=== PATIENT | female | born 1960 | race Caucasian/White ===

== ENCOUNTER 2022-04-01 01:06 | Inpatient (IN) | payer MEDICAID, SELFPAY ==
[2022-04-01] VITALS (9 sets, daily range): BP systolic 124–152; BP diastolic 63–74; PULSE 68–88; RESP 12–99; TEMP 36–37.1; O2SAT 97–100; BMI 31.5
--- NOTE | ~2022-04-01 | XR_ITS ---
EXAMINATION: XR CHEST CLINICAL INFORMATION: Change in mental status. Rule out pneumonia. COMPARISON: 01/17/2006 TECHNIQUE: Frontal view of the chest was obtained. FINDINGS: Lung volumes are low. No consolidation, edema, or effusion. No pneumothorax. Linear right perihilar opacity favors atelectasis. The cardiomediastinal silhouette is normal in size. No acute osseous abnormality. XR/XR chest 1V IMPRESSION: Low lung volumes with right perihilar atelectasis. No consolidation.
--- NOTE | ~2022-04-01 | US_ITS ---
EXAMINATION: US ABDOMEN COMPLETE CLINICAL INFORMATION: Cirrhosis. COMPARISON: None TECHNIQUE: Real-time imaging of the abdominal viscera. Examination performed bedside with limitation in views. FINDINGS: PANCREAS: Portions of the body are visualized. Head and tail obscured by overlying bowel gas. ABDOMINAL AORTA: The proximal and mid segments are unremarkable. The distal abdominal aorta is not identified. INFERIOR VENA CAVA: Visualized portions are normal. LIVER: There is coarsened echotexture present consistent with diffuse hepatocellular disease. The liver appears small in size. There appears to be a TIPS present with hepatopedal flow but increased velocity over 100 cm/s is persistence with some degree of stenosis. No focal hepatic lesion. There is no intrahepatic biliary duct dilatation seen. GALLBLADDER: Not visualized COMMON BILE DUCT: Normal in caliber measuring 0.6 cm in diameter. RIGHT KIDNEY: Normal. No hydronephrosis. No renal calculi or focal parenchymal lesions. The kidney measures 10.5 cm in maximum dimension. LEFT KIDNEY: Normal. No hydronephrosis. No renal calculi or focal parenchymal lesions. The kidney measures 9.8 cm in maximum dimension. SPLEEN: Normal. The spleen measures 10.2 cm in maximum dimension. FREE FLUID: Ascites present. US/US abdomen complete IMPRESSION: Hepatocellular disease. TIPS in place with hepatopedal flow present. Findings suggestive of TIPS stenosis. Ascites.
--- NOTE | 2022-04-01 01:26 | PC.NURSE ---
pt is unable to answer any questions at this time. Pt friend [phone] was able to assist us with some medical background for pt. Unable to get of hold of at this time.
--- NOTE | 2022-04-01 01:34 | ECG_ITS ---
Test Reason : ALTERED MENTAL Blood Pressure : / mmHG Vent. Rate : 079 BPM Atrial Rate : 079 BPM P-R Int : 170 ms QRS Dur : 078 ms QT Int : 432 ms P-R-T Axes : 036 -04 023 degrees QTc Int : 495 ms Normal sinus rhythm Cannot rule out Anterior infarct , age undetermined Abnormal ECG No previous ECGs available Referred By: Jose Luis Abernathy Electronically Signed By:JOSEPH SANDERS MD
--- NOTE | 2022-04-01 01:34 | PC.NURSE ---
Pt comes to Ed via ambulance. Pt unable to state name or where she is. Pt mentation noted to be altered. Pt is able to follow command but doesn't answer questions appropiately.
--- NOTE | 2022-04-01 01:35 | PC.NURSE ---
Attempted to call spouse, phone listed is a fax number, Called [place] police to do a wellness check and to attempt to get phone. Will notify VANDANA blancas.
[2022-04-01 01:54] LABS: Hematocrit 34.9 % (37.0-47.0); Imm Gran Abs Auto 0.01 X10*3/uL (0.00-0.03); PLT CLUMP 1; Red Cell Distribution Width 17.8 % (11.0-16.0); SCAN SMEAR FLAG 1
[2022-04-01 01:55] LABS: Basophils Percent Auto 0.7 % (0-2); Eosinophils Percent Auto 0.7 % (0-4); Hemoglobin 11.2 g/dl (12.0-16.0); Imm Gran Pct Auto 0.2 % (0.0-0.4); Lymphocytes Absolute Auto 0.3 X10*3/uL (1.2-4.9); Lymphocytes Percent Auto 6.6 % (20-40); Mean Corpuscular HGB Conc 32.1 g/dl (31.0-35.0); Mean Corpuscular Hemoglobin 26.8 pg (27.0-33.0); Mean Corpuscular Volume 83.5 fL (80.0-98.0); Mean Platelet Volume 9.2 fL (9.4-12.3); Monocytes Absolute Auto 0.3 X10*3/uL (0.1-1.2); Monocytes Percent Auto 7.1 % (2-11); Neutrophils Absolute Auto 3.4 x10*3/uL (2.0-8.3); Neutrophils Percent Auto 84.7 % (45-73); Red Blood Count 4.18 X10*6/uL (4.20-5.50)
[2022-04-01 01:57] LABS: MANUAL DIFF FLAG NO; White Blood Count 4.1 X10*3/uL (4.8-10.8)
[2022-04-01 01:59] LABS: INTERNATIONAL NORM RATIO 1.3 (0.9-1.1); Prothrombin Time 15.2 SEC (10.0-13.1)
[2022-04-01 02:02] LABS: Partial Thromboplastin Time 33.6 SEC (26.0-36.4)
[2022-04-01 02:02] LABS: Ammonia 244 umol/L (13-55)
[2022-04-01 02:10] LABS: Ethanol < 10 mg/dL
[2022-04-01] MEDS: 0.9 % Sodium Chloride 1,000 ML 999 ML IV (02:11)
[2022-04-01 02:15] LABS: Troponin-I High Sensitivity < 3.5 ng/L (<3.5-17.0)
[2022-04-01 02:17] LABS: Alanine Aminotransferase 31 U/L (0-31); Albumin Level 2.8 g/dL (3.5-5.0); Alkaline Phosphatase 132 U/L (39-117); Anion Gap 13 (12-20); Aspartate Amino Transferase 72 U/L (5-31); Bilirubin Total 1.3 mg/dL (0.0-1.0); Blood Urea Nitrogen 10 mg/dL (9-16); Calcium 8.2 mg/dL (8.4-10.2); Carbon Dioxide 23 mmol/L (22-29); Chloride 112 mmol/L (96-108); Creatinine Clr Calc Pharmacy 84.1; Estimated Glomerular Filt Rate > 60; Glucose Random 200 mg/dL (60-115); Lipase 54 U/L (8-78); Potassium 3.6 mmol/L (3.3-5.1); Sodium 144 mmol/L (135-145); Total Protein 6.5 g/dL (6.5-8.0)
[2022-04-01 02:30] LABS: Platelet Count 96 X10*3/uL (160-400)
[2022-04-01 02:33] LABS: TSH reflex Free T4 2.07 uIU/mL (0.32-4.0)
[2022-04-01 02:37] LABS: Influenza A PCR NEGATIVE (Negative); Influenza B PCR NEGATIVE (Negative); Resp Syncy Virus RNA Qual PCR NEGATIVE (Negative); SARS COV2 PCR INHOUSE NEGATIVE (Negative)
[2022-04-01 03:50] LABS: Reflex Lactate? Lactic Acid Added
--- NOTE | 2022-04-01 04:16 | PC.NURSE ---
Pt somnolent responsive to name. Pt doesn't respond verbally Ed provider aware. Plan pt to receive rectal lactulose.
--- NOTE | 2022-04-01 04:35 | ED_ITS ---
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 The ED charge nurse did contact [place] and spoke to a co-worker who was a friend of the patient. The patient apparently has liver disease and is supposed to be taking lactulose but stop this medication since it was causing diarrhea and the patient needed to work. The friend also reported that the patient may have had some type of liver surgery and that the cause of the patient's liver failure was secondary to a COVID-19 booster shot. We attempted to call the next of kin number and this was a fax machine. The [place] police were contacted and they went to the patient's home and there was no response when the police knocked on the door. Related Data Allergies Allergy/AdvReac Type Severity Reaction Status Date / Time Unable to Assess Allergy Unverified 04/01/22 01:25 Review of Systems Review of Systems: Yes Unobtainable due to mental status PMFSH Social History Social History Advance Directives: No Physical Exam ED Vital Signs: Vital Signs - 24 hr 04/01/22 01:29 04/01/22 02:22 04/01/22 04:14 Temperature 98.7 F 98.7 F Pulse Rate 80 72 70 Respiratory Rate 12 99 H Blood Pressure 137/69 137/67 135/67 Pulse Oximetry 100 98 98 Oxygen Delivery Method Room Air Room Air Room Air 04/01/22 04:44 04/01/22 05:24 Temperature 97.5 F Pulse Rate 68 68 Respiratory Rate 16 16 Blood Pressure 132/63 124/64 Pulse Oximetry 97 97 Oxygen Delivery Method Room Air Room Air BMI result Body Mass Index 31.5 Vital signs were normal. General: The patient is lethargic but she was able to tell me her name only, she was not able to answer questions HEENT: Head is normal cephalic and atraumatic, pupils were equal round reactive light sclera and conjunctiva were normal, mouth revealed moist membranes Neck: Soft Lungs: Clear to auscultation breath sounds symmetric bilaterally Heart: Rhythm normal S1-S2 no murmurs rubs or gallops Abdomen: Obese, soft, nontender Extremities: unremarkable Neurologic: Patient is lethargic, was only able to tell me her name, does not follow commands Medications Administered Discontinued Medications Generic Name Dose Route Start Last Admin Trade Name Abdifatah PRN Reason Stop Dose Admin Sodium Chloride 1,000 mls @ 999 mls/hr 04/01/22 01:33 04/01/22 03:17 Ns IV 04/01/22 02:33 Infused .Q1H1M STA Infusion Lactulose 200 gm 04/01/22 04:31 04/01/22 05:11 Lactulose 320 Gm/480 Ml Solution AK 04/01/22 04:32 200 gm ONCE ONE Administration Medical Decision Making Medical Decision Making MDM Narrative: 61-year-old female who presents emergency department for evaluation of change in mental status. The patient apparently has liver failure but I have no records on her. Patient is supposed to be taking lactulose but stop this medication secondary to diarrhea and the fact that she needed to work and could not work with diarrhea. On presentation the patient is lethargic, she is oriented to person only, she was not able to follow simple commands. I ordered a CBC, CMP, ammonia level, troponin level, lactic acid, alcohol level, COVID-19, influenza and RSV. Patient was ordered normal saline IV x1 L. 0500: My interpretation patient's laboratory tests are as follows WBC low 4100, H&H low 11.2 and 34.9. Platelet count is low 96,000, these low values are most likely related to her liver disease. Total bilirubin elevated 1.3. AST elevated 72. Lactic acid is elevated 3.0 this is again related to her liver disease and not due to sepsis. Ammonia level is elevated 244. TSH was normal. COVID-19, influenza and RSV were negative. I ordered a 200 mg lactulose retention enema to treat the patient's hepatic encephalopathy. I did discuss the patient's presentation with the covering hospitalist, Dr. Cortes over tiger text and the patient was accepted to the ospitalist service for further treatment. Differential Diagnosis The differential includes was not limited to hepatic encephalopathy, electrolyte abnormality, alcohol intoxication, drug use Lab Data [facility] Lab Attestation statement: I reviewed the patient's lab results. Please see MDM from my discussion. 04/01/22 01:45 04/01/22 01:47 Labs: Lab Results 04/01/22 04/01/22 04/01/22 Range/Units 01:45 01:45 01:46 WBC 4.1 L (4.8-10.8) X10*3/uL RBC 4.18 L (4.20-5.50) X10*6/uL Hgb 11.2 L (12.0-16.0) g/dl Hct 34.9 L (37.0-47.0) % MCV 83.5 (80.0-98.0) fL MCH 26.8 L (27.0-33.0) pg MCHC 32.1 (31.0-35.0) g/dl RDW 17.8 H (11.0-16.0) % Plt Count 96 L (160-400) X10*3/uL MPV 9.2 L (9.4-12.3) fL Immature Gran % (Auto) 0.2 (0.0-0.4) % Neut % (Auto) 84.7 H (45-73) % Lymph % (Auto) 6.6 L (20-40) % Sharp % (Auto) 7.1 (2-11) % Eos % (Auto) 0.7 (0-4) % Baso % (Auto) 0.7 (0-2) % Lymph # (Auto) 0.3 L (1.2-4.9) X10*3/uL Sharp # (Auto) 0.3 (0.1-1.2) X10*3/uL Eos # (Auto) 0.0 (0.0-0.4) X10*3/uL Baso # (Auto) 0.0 (0.0-0.2) X10*3/uL Abs Immat Gran (auto) 0.01 (0.00-0.03) X10*3/uL Absolute Neuts (auto) 3.4 (2.0-8.3) x10*3/uL Absolute Nucleated RBC 0.000 (0.0-0.012) X10*3/uL Nucleated RBC % (auto) 0.0 (0.0-0.2) /100WBC PT (10.0-13.1) SEC INR (0.9-1.1) APTT (26.0-36.4) SEC Sodium (135-145) mmol/L Potassium (3.3-5.1) mmol/L Chloride (96-108) mmol/L Carbon Dioxide (22-29) mmol/L Anion Gap (12-20) BUN (9-16) mg/dL Creatinine (0.5-1.4) mg/dL Estim Creat Clear Calc Estimated GFR Random Glucose (60-115) mg/dL Lactic Acid (0.5-2.0) mmol/L Lactic Acid F/U @ 2Hr (0.5-2.0) mmol/L Calcium (8.4-10.2) mg/dL Total Bilirubin (0.0-1.0) mg/dL AST (5-31) U/L ALT (0-31) U/L Alkaline Phosphatase (39-117) U/L Ammonia 244 H (13-55) umol/L Troponin I High Sens (<3.5-17.0) ng/L Total Protein (6.5-8.0) g/dL Albumin (3.5-5.0) g/dL Lipase (8-78) U/L TSH (0.32-4.0) uIU/mL Urine Color Urine Appearance Urine pH (5.0-9.0) Ur Specific [place] (1.005-1.025) Urine Protein (Neg-Trace) mg/dL Urine Glucose (UA) (Negative) mg/dL Urine Ketones (Negative) mg/dL Urine Blood (Negative) Urine Nitrite (Negative) Ur Leukocyte Esterase (Negative) Urine Opiates Screen (Not Detect) Urine Fentanyl Screen (Not Detect) Ur Barbiturates Screen (Not Detect) Ur Phencyclidine Scrn (Not Detect) Ur Amphetamines Screen (Not Detect) U Benzodiazepines Scrn (Not Detect) Urine Cocaine Screen (Not Detect) U Marijuana (THC) Screen (Not Detect) Ethyl Alcohol < 10 mg/dL Influenza Type A (PCR) (Negative) Influenza Type B (PCR) (Negative) RSV RNA Qual (PCR) (Negative) SARS-CoV-2 RNA (RT-PCR) (Negative) 04/01/22 04/01/22 04/01/22 Range/Units 01:46 01:47 01:47 WBC (4.8-10.8) X10*3/uL RBC (4.20-5.50) X10*6/uL Hgb (12.0-16.0) g/dl Hct (37.0-47.0) % MCV (80.0-98.0) fL MCH (27.0-33.0) pg MCHC (31.0-35.0) g/dl RDW (11.0-16.0) % Plt Count (160-400) X10*3/uL MPV (9.4-12.3) fL Immature Gran % (Auto) (0.0-0.4) % Neut % (Auto) (45-73) % Lymph % (Auto) (20-40) % Sharp % (Auto) (2-11) % Eos % (Auto) (0-4) % Baso % (Auto) (0-2) % Lymph # (Auto) (1.2-4.9) X10*3/uL Sharp # (Auto) (0.1-1.2) X10*3/uL Eos # (Auto) (0.0-0.4) X10*3/uL Baso # (Auto) (0.0-0.2) X10*3/uL Abs Immat Gran (auto) (0.00-0.03) X10*3/uL Absolute Neuts (auto) (2.0-8.3) x10*3/uL Absolute Nucleated RBC (0.0-0.012) X10*3/uL Nucleated RBC % (auto) (0.0-0.2) /100WBC PT 15.2 H (10.0-13.1) SEC INR 1.3 H (0.9-1.1) APTT 33.6 (26.0-36.4) SEC Sodium 144 (135-145) mmol/L Potassium 3.6 (3.3-5.1) mmol/L Chloride 112 H (96-108) mmol/L Carbon Dioxide 23 (22-29) mmol/L Anion Gap 13 (12-20) BUN 10 (9-16) mg/dL Creatinine 0.68 (0.5-1.4) mg/dL Estim Creat Clear Calc 84.1 Estimated GFR > 60 Random Glucose 200 H (60-115) mg/dL Lactic Acid (0.5-2.0) mmol/L Lactic Acid F/U @ 2Hr (0.5-2.0) mmol/L Calcium 8.2 L (8.4-10.2) mg/dL Total Bilirubin 1.3 H (0.0-1.0) mg/dL AST 72 H (5-31) U/L ALT 31 (0-31) U/L Alkaline Phosphatase 132 H (39-117) U/L Ammonia (13-55) umol/L Troponin I High Sens < 3.5 (<3.5-17.0) ng/L Total Protein 6.5 (6.5-8.0) g/dL Albumin 2.8 L (3.5-5.0) g/dL Lipase 54 (8-78) U/L TSH 2.07 (0.32-4.0) uIU/mL Urine Color Urine Appearance Urine pH (5.0-9.0) Ur Specific [place] (1.005-1.025) Urine Protein (Neg-Trace) mg/dL Urine Glucose (UA) (Negative) mg/dL Urine Ketones (Negative) mg/dL Urine Blood (Negative) Urine Nitrite (Negative) Ur Leukocyte Esterase (Negative) Urine Opiates Screen (Not Detect) Urine Fentanyl Screen (Not Detect) Ur Barbiturates Screen (Not Detect) Ur Phencyclidine Scrn (Not Detect) Ur Amphetamines Screen (Not Detect) U Benzodiazepines Scrn (Not Detect) Urine Cocaine Screen (Not Detect) U Marijuana (THC) Screen (Not Detect) Ethyl Alcohol mg/dL Influenza Type A (PCR) (Negative) Influenza Type B (PCR) (Negative) RSV RNA Qual (PCR) (Negative) SARS-CoV-2 RNA (RT-PCR) (Negative) 04/01/22 04/01/22 04/01/22 Range/Units 01:47 01:53 04:20 WBC (4.8-10.8) X10*3/uL RBC (4.20-5.50) X10*6/uL Hgb (12.0-16.0) g/dl Hct (37.0-47.0) % MCV (80.0-98.0) fL MCH (27.0-33.0) pg MCHC (31.0-35.0) g/dl RDW (11.0-16.0) % Plt Count (160-400) X10*3/uL MPV (9.4-12.3) fL Immature Gran % (Auto) (0.0-0.4) % Neut % (Auto) (45-73) % Lymph % (Auto) (20-40) % Sharp % (Auto) (2-11) % Eos % (Auto) (0-4) % Baso % (Auto) (0-2) % Lymph # (Auto) (1.2-4.9) X10*3/uL Sharp # (Auto) (0.1-1.2) X10*3/uL Eos # (Auto) (0.0-0.4) X10*3/uL Baso # (Auto) (0.0-0.2) X10*3/uL Abs Immat Gran (auto) (0.00-0.03) X10*3/uL Absolute Neuts (auto) (2.0-8.3) x10*3/uL Absolute Nucleated RBC (0.0-0.012) X10*3/uL Nucleated RBC % (auto) (0.0-0.2) /100WBC PT (10.0-13.1) SEC INR (0.9-1.1) APTT (26.0-36.4) SEC Sodium (135-145) mmol/L Potassium (3.3-5.1) mmol/L Chloride (96-108) mmol/L Carbon Dioxide (22-29) mmol/L Anion Gap (12-20) BUN (9-16) mg/dL Creatinine (0.5-1.4) mg/dL Estim Creat Clear Calc Estimated GFR Random Glucose (60-115) mg/dL Lactic Acid 3.0 H* (0.5-2.0) mmol/L Lactic Acid F/U @ 2Hr 2.0 (0.5-2.0) mmol/L Calcium (8.4-10.2) mg/dL Total Bilirubin (0.0-1.0) mg/dL AST (5-31) U/L ALT (0-31) U/L Alkaline Phosphatase (39-117) U/L Ammonia (13-55) umol/L Troponin I High Sens (<3.5-17.0) ng/L Total Protein (6.5-8.0) g/dL Albumin (3.5-5.0) g/dL Lipase (8-78) U/L TSH (0.32-4.0) uIU/mL Urine Color Urine Appearance Urine pH (5.0-9.0) Ur Specific [place] (1.005-1.025) Urine Protein (Neg-Trace) mg/dL Urine Glucose (UA) (Negative) mg/dL Urine Ketones (Negative) mg/dL Urine Blood (Negative) Urine Nitrite (Negative) Ur Leukocyte Esterase (Negative) Urine Opiates Screen (Not Detect) Urine Fentanyl Screen (Not Detect) Ur Barbiturates Screen (Not Detect) Ur Phencyclidine Scrn (Not Detect) Ur Amphetamines Screen (Not Detect) U Benzodiazepines Scrn (Not Detect) Urine Cocaine Screen (Not Detect) U Marijuana (THC) Screen (Not Detect) Ethyl Alcohol mg/dL Influenza Type A (PCR) NEGATIVE (Negative) Influenza Type B (PCR) NEGATIVE (Negative) RSV RNA Qual (PCR) NEGATIVE (Negative) SARS-CoV-2 RNA (RT-PCR) NEGATIVE (Negative) 04/01/22 04/01/22 Range/Units 04:43 04:43 WBC (4.8-10.8) X10*3/uL RBC (4.20-5.50) X10*6/uL Hgb (12.0-16.0) g/dl Hct (37.0-47.0) % MCV (80.0-98.0) fL MCH (27.0-33.0) pg MCHC (31.0-35.0) g/dl RDW (11.0-16.0) % Plt Count (160-400) X10*3/uL MPV (9.4-12.3) fL Immature Gran % (Auto) (0.0-0.4) % Neut % (Auto) (45-73) % Lymph % (Auto) (20-40) % Sharp % (Auto) (2-11) % Eos % (Auto) (0-4) % Baso % (Auto) (0-2) % Lymph # (Auto) (1.2-4.9) X10*3/uL Sharp # (Auto) (0.1-1.2) X10*3/uL Eos # (Auto) (0.0-0.4) X10*3/uL Baso # (Auto) (0.0-0.2) X10*3/uL Abs Immat Gran (auto) (0.00-0.03) X10*3/uL Absolute Neuts (auto) (2.0-8.3) x10*3/uL Absolute Nucleated RBC (0.0-0.012) X10*3/uL Nucleated RBC % (auto) (0.0-0.2) /100WBC PT (10.0-13.1) SEC INR (0.9-1.1) APTT (26.0-36.4) SEC Sodium (135-145) mmol/L Potassium (3.3-5.1) mmol/L Chloride (96-108) mmol/L Carbon Dioxide (22-29) mmol/L Anion Gap (12-20) BUN (9-16) mg/dL Creatinine (0.5-1.4) mg/dL Estim Creat Clear Calc Estimated GFR Random Glucose (60-115) mg/dL Lactic Acid (0.5-2.0) mmol/L Lactic Acid F/U @ 2Hr (0.5-2.0) mmol/L Calcium (8.4-10.2) mg/dL Total Bilirubin (0.0-1.0) mg/dL AST (5-31) U/L ALT (0-31) U/L Alkaline Phosphatase (39-117) U/L Ammonia (13-55) umol/L Troponin I High Sens (<3.5-17.0) ng/L Total Protein (6.5-8.0) g/dL Albumin (3.5-5.0) g/dL Lipase (8-78) U/L TSH (0.32-4.0) uIU/mL Urine Color Yellow Urine Appearance Clear Urine pH 7.0 (5.0-9.0) Ur Specific [place] 1.010 (1.005-1.025) Urine Protein Negative (Neg-Trace) mg/dL Urine Glucose (UA) 500 H (Negative) mg/dL Urine Ketones Negative (Negative) mg/dL Urine Blood Negative (Negative) Urine Nitrite Negative (Negative) Ur Leukocyte Esterase Negative (Negative) Urine Opiates Screen Not Detected (Not Detect) Urine Fentanyl Screen Not Detected (Not Detect) Ur Barbiturates Screen Not Detected (Not Detect) Ur Phencyclidine Scrn Not Detected (Not Detect) Ur Amphetamines Screen Not Detected (Not Detect) U Benzodiazepines Scrn Not Detected (Not Detect) Urine Cocaine Screen Not Detected (Not Detect) U Marijuana (THC) Screen Not Detected (Not Detect) Ethyl Alcohol mg/dL Influenza Type A (PCR) (Negative) Influenza Type B (PCR) (Negative) RSV RNA Qual (PCR) (Negative) SARS-CoV-2 RNA (RT-PCR) (Negative) Independent Interpretation I performed an independent interpretation of an: Plain X-Ray (Independent interpretation chest x-ray is as follows: Linear atelectasis at the right middle lobe, no pneumonia) Radiology Impression Discussion of test interpretation with radiology: I have reviewed the radiologist's reading. Radiologist Impression: XR/XR chest 1V IMPRESSION: Low lung volumes with right perihilar atelectasis. No consolidation. Dictated By:Bharath Ambrose MDSigned By:<Electronically signed by Bharath Ambrose MD in [place]>04/01/22 0242 Discharge Plan Discharge Clinical Impression: Alcoholic encephalopathy Patient Disposition: Admitted As Inpatient
[2022-04-01 04:57] LABS: Appearance Urine Clear; Color Urine Yellow; Glucose Urine UA 500 mg/dL (Negative); Leukocyte Esterase Urine Negative (Negative); Nitrite Urine Negative (Negative); Urine Blood Negative (Negative); Urine Ketones Negative (Negative); Urine Protein Negative (Neg-Trace)
[2022-04-01 05:06] LABS: Amphetamine Screen Urine Not Detected (Not Detect); Barbiturates, Urine Not Detected (Not Detect); Benzodiazepines Screen Urine Not Detected (Not Detect); Cannabinoid Screen Urine Not Detected (Not Detect); Cocaine Screen Urine Not Detected (Not Detect); Fentanyl, urine Not Detected (Not Detect); Opiate Screen Urine Not Detected (Not Detect); Phencyclidine Screen Urine Not Detected (Not Detect)
[2022-04-01] MEDS: Lactulose 320 GM/480 ML SOLUTION 200 GM PR (05:11)
--- NOTE | 2022-04-01 05:25 | PC.NURSE ---
Pt is lethargic opens eyes when name is being called responsive to painful stimuli. Pt received lactulose rectally per MAY.
--- NOTE | 2022-04-01 06:32 | P.HPHOSP_ITS ---
History of Present Illness Date of Service: 04/01/22 Chief Complaint: Confusion This is a 61-year-old female with pertinent history of liver disease who was sent to the emergency department for evaluation of confusion. Patient is very lethargic upon my evaluation and does not answer simple questions and does not follow simple commands. Unable to obtain any history from the patient. History was obtained by chart review and by ER provider. 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 The ED charge nurse did contact [place] and spoke to a co-worker who was a friend of the patient.? The patient apparently has liver disease and is supposed to be taking lactulose but stop this medication since it was causing diarrhea and the patient needed to work.? The friend also reported that the patient may have had some type of liver surgery and that the cause of the patient's liver failure was secondary to a COVID-19 booster shot.? We attempted to call the next of kin number and this was a fax machine.? The [place] police were contacted and they went to the patient's home and there was no response when the police knocked on the door Review of Systems Review of Systems: Yes Unobtainable due to mental status PMFSH Medical History Liver disease Pertinent family history: Unable to obtain Social History Advance Directives: No Meds Allergies Allergy/AdvReac Type Severity Reaction Status Date / Time Unable to Assess Allergy Unverified 04/01/22 01:25 Active Medications: Current Medications Enoxaparin Sodium (Enoxaparin Sodium 40 Mg/0.4 Ml Syringe) 40 mg SUBCUT Q24H LOLA Melatonin (Melatonin 3 Mg Tablet) 6 mg PO BEDTIME PRN PRN Reason: Insomnia Ondansetron HCl (Ondansetron Hcl 4 Mg/2 Ml Vial) 4 mg IVPUSH Q8H PRN PRN Reason: Nausea and Vomiting Sodium Chloride (0.9 % Sodium Chloride Flush 3 Ml Syringe) 3 ml IVFLUSH QSHIFT LOLA Physical Exam Vital Signs and Narrative: Vital Signs: Last Vital Signs Temp 97.5 F 04/01/22 05:24 Pulse 68 04/01/22 05:24 Resp 16 04/01/22 05:24 BP 124/64 04/01/22 05:24 Pulse Ox 97 04/01/22 05:24 O2 Del Method 04/01/22 05:24 BMI result Body Mass Index 31.5 Middle-aged female lying in bed in no distress Neck supple, no JVD Regular rate and rhythm, S1-S2 heard Regular breath sounds bilaterally, no wheezing or crackles appreciated Abdomen obese nontender, no guarding, no rigidity Patient is lethargic, unable to have a conversation and unable to follow simple commands Psych: Drowsy Results Labs 04/01/22 01:45 04/01/22 01:47 Labs: Laboratory Results - last 24 hr 04/01/22 04/01/22 04/01/22 01:45 01:45 01:46 MCV 83.5 MCH 26.8 L MCHC 32.1 RDW 17.8 H Plt Count 96 L MPV 9.2 L Immature Gran % (Auto) 0.2 Neut % (Auto) 84.7 H Lymph % (Auto) 6.6 L Marshall % (Auto) 7.1 Eos % (Auto) 0.7 Baso % (Auto) 0.7 Lymph # (Auto) 0.3 L Marshall # (Auto) 0.3 Eos # (Auto) 0.0 Baso # (Auto) 0.0 Abs Immat Gran (auto) 0.01 Absolute Neuts (auto) 3.4 Absolute Nucleated RBC 0.000 Nucleated RBC % (auto) 0.0 PT INR APTT Anion Gap Estim Creat Clear Calc Estimated GFR Random Glucose Lactic Acid Lactic Acid F/U @ 2Hr Calcium Total Bilirubin AST ALT Alkaline Phosphatase Ammonia 244 H Troponin I High Sens Total Protein Albumin Lipase TSH Urine Color Urine Appearance Urine pH Ur Specific [place] Urine Protein Urine Glucose (UA) Urine Ketones Urine Blood Urine Nitrite Ur Leukocyte Esterase Urine Opiates Screen Urine Fentanyl Screen Ur Barbiturates Screen Ur Phencyclidine Scrn Ur Amphetamines Screen U Benzodiazepines Scrn Urine Cocaine Screen U Marijuana (THC) Screen Ethyl Alcohol < 10 Influenza Type A (PCR) Influenza Type B (PCR) RSV RNA Qual (PCR) SARS-CoV-2 RNA (RT-PCR) 04/01/22 04/01/22 04/01/22 01:46 01:47 01:47 MCV MCH MCHC RDW Plt Count MPV Immature Gran % (Auto) Neut % (Auto) Lymph % (Auto) Marshall % (Auto) Eos % (Auto) Baso % (Auto) Lymph # (Auto) Marshall # (Auto) Eos # (Auto) Baso # (Auto) Abs Immat Gran (auto) Absolute Neuts (auto) Absolute Nucleated RBC Nucleated RBC % (auto) PT 15.2 H INR 1.3 H APTT 33.6 Anion Gap 13 Estim Creat Clear Calc 84.1 Estimated GFR > 60 Random Glucose 200 H Lactic Acid Lactic Acid F/U @ 2Hr Calcium 8.2 L Total Bilirubin 1.3 H AST 72 H ALT 31 Alkaline Phosphatase 132 H Ammonia Troponin I High Sens < 3.5 Total Protein 6.5 Albumin 2.8 L Lipase 54 TSH 2.07 Urine Color Urine Appearance Urine pH Ur Specific [place] Urine Protein Urine Glucose (UA) Urine Ketones Urine Blood Urine Nitrite Ur Leukocyte Esterase Urine Opiates Screen Urine Fentanyl Screen Ur Barbiturates Screen Ur Phencyclidine Scrn Ur Amphetamines Screen U Benzodiazepines Scrn Urine Cocaine Screen U Marijuana (THC) Screen Ethyl Alcohol Influenza Type A (PCR) Influenza Type B (PCR) RSV RNA Qual (PCR) SARS-CoV-2 RNA (RT-PCR) 04/01/22 04/01/22 04/01/22 01:47 01:53 04:20 MCV MCH MCHC RDW Plt Count MPV Immature Gran % (Auto) Neut % (Auto) Lymph % (Auto) Marshall % (Auto) Eos % (Auto) Baso % (Auto) Lymph # (Auto) Marshall # (Auto) Eos # (Auto) Baso # (Auto) Abs Immat Gran (auto) Absolute Neuts (auto) Absolute Nucleated RBC Nucleated RBC % (auto) PT INR APTT Anion Gap Estim Creat Clear Calc Estimated GFR Random Glucose Lactic Acid 3.0 H* Lactic Acid F/U @ 2Hr 2.0 Calcium Total Bilirubin AST ALT Alkaline Phosphatase Ammonia Troponin I High Sens Total Protein Albumin Lipase TSH Urine Color Urine Appearance Urine pH Ur Specific [place] Urine Protein Urine Glucose (UA) Urine Ketones Urine Blood Urine Nitrite Ur Leukocyte Esterase Urine Opiates Screen Urine Fentanyl Screen Ur Barbiturates Screen Ur Phencyclidine Scrn Ur Amphetamines Screen U Benzodiazepines Scrn Urine Cocaine Screen U Marijuana (THC) Screen Ethyl Alcohol Influenza Type A (PCR) NEGATIVE Influenza Type B (PCR) NEGATIVE RSV RNA Qual (PCR) NEGATIVE SARS-CoV-2 RNA (RT-PCR) NEGATIVE 04/01/22 04/01/22 04:43 04:43 MCV MCH MCHC RDW Plt Count MPV Immature Gran % (Auto) Neut % (Auto) Lymph % (Auto) Marshall % (Auto) Eos % (Auto) Baso % (Auto) Lymph # (Auto) Marshall # (Auto) Eos # (Auto) Baso # (Auto) Abs Immat Gran (auto) Absolute Neuts (auto) Absolute Nucleated RBC Nucleated RBC % (auto) PT INR APTT Anion Gap Estim Creat Clear Calc Estimated GFR Random Glucose Lactic Acid Lactic Acid F/U @ 2Hr Calcium Total Bilirubin AST ALT Alkaline Phosphatase Ammonia Troponin I High Sens Total Protein Albumin Lipase TSH Urine Color Yellow Urine Appearance Clear Urine pH 7.0 Ur Specific [place] 1.010 Urine Protein Negative Urine Glucose (UA) 500 H Urine Ketones Negative Urine Blood Negative Urine Nitrite Negative Ur Leukocyte Esterase Negative Urine Opiates Screen Not Detected Urine Fentanyl Screen Not Detected Ur Barbiturates Screen Not Detected Ur Phencyclidine Scrn Not Detected Ur Amphetamines Screen Not Detected U Benzodiazepines Scrn Not Detected Urine Cocaine Screen Not Detected U Marijuana (THC) Screen Not Detected Ethyl Alcohol Influenza Type A (PCR) Influenza Type B (PCR) RSV RNA Qual (PCR) SARS-CoV-2 RNA (RT-PCR) Imaging Radiologist's Impressions: Impressions Chest X-Ray 04/01/22 02:30 IMPRESSION: Low lung volumes with right perihilar atelectasis. No consolidation. Assessment and Plan (1) Hepatic encephalopathy: Status: Acute (2) Liver disease: Status: Acute Plan This is a 61-year-old female with pertinent history of liver disease who was sent to the emergency department for evaluation of confusion. #. Acute hepatic encephalopathy Grade II/III: Due to noncompliance with lactulose. Patient lethargic and not awake enough to take oral lactulose. Initiating lactulose retention enema until mentation improves. No electrolyte abnormalities, evidence of infection, GI bleed, kidney injury as precipitating cause. #. Liver disease, ?cirrhosis: Unclear etiology. As per co-worker, patient has liver failure secondary to ?COVID booster shot. Obtaining ultrasound of the liver to look at liver contour and complications possible cirrhosis including ascites. #. Thrombocytopenia due to liver disease #. Coagulopathy due to liver disease #. Lactic acidosis due to liver disease and not to be sepsis #. Hyperglycemia: Initiating Accu-Cheks every 6 hours. Obtain A1c DVT prophylaxis: Defer Lovenox in the setting of thrombocytopenia Full code NPO until mentation improves Admit as inpatient and will require two night minimum hospital stay for management of acute hepatic encephalopathy and monitoring of mentation Time Spent With Patient Time: Total time managing care of this patient today ____ minutes. Quality Stroke Does the patient have a stroke diagnosis?: No VTE Prior VTE?: No VTE Risk Level:: Medical - moderate - high VTE Device Contraindication: Treatment Not Indicated VTE Drug Contraindication: N/A - Med Ordered
[2022-04-01 07:03] LABS: Lactic Acid 1.6 mmol/L (0.5-2.0)
[2022-04-01 07:12] LABS: Alanine Aminotransferase 28 U/L (0-31); Albumin Level 2.8 g/dL (3.5-5.0); Alkaline Phosphatase 130 U/L (39-117); Anion Gap 12 (12-20); Aspartate Amino Transferase 71 U/L (5-31); Bilirubin Total 1.4 mg/dL (0.0-1.0); Blood Urea Nitrogen 9 mg/dL (9-16); Calcium 8.1 mg/dL (8.4-10.2); Carbon Dioxide 22 mmol/L (22-29); Chloride 114 mmol/L (96-108); Creatinine Clr Calc Pharmacy 98.6; Estimated Glomerular Filt Rate > 60; Glucose Random 83 mg/dL (60-115); Sodium 144 mmol/L (135-145); Total Protein 6.6 g/dL (6.5-8.0)
[2022-04-01 07:29] LABS: Estimated Average Glucose 94 mg/dL; Hemoglobin A1c % 4.9 %
--- NOTE | 2022-04-01 07:29 | PC.NURSE ---
patient alert , makes eye contact when name called . edward . heart rate regular at 68 beats per minute . breathing even and unlabored . lungs clear throughout . skin warm and dry . abdomen distended . hypoactive bowel sounds noted in right quadrant . no bowel sounds noted in left side . rebound tenderness noted in left side , patient grimaced and moaned when palpitations where being done on assessment . patient has had no results from previous lactulose enema given . patient has bilateral non piting edema on ankles . patient on cardiac care nurse . bed at lowest position . patient on CVM monitoring . patient aware of plan of care .
[2022-04-01] MEDS: 0.9 % Sodium Chloride Flush 3 ML SYRINGE IVFLUSH ×3 (07:36→19:13)
[2022-04-01 07:47] LABS: Glucose, Whole Blood 76 mg/dL (60-115)
--- NOTE | 2022-04-01 08:07 | PC.NURSE ---
Nurse to Nurse given to [facility] . patient ready for transport to floor .
--- NOTE | 2022-04-01 09:54 | PM.EVENT ---
Event Note Date of Service: 04/01/22 Event Note: This is a 61-year-old female with pertinent history of liver disease who was sent to the emergency department for evaluation of confusion. Acute hepatic encephalopathy Grade II/III secondary to noncompliance with lactulose.? Patient lethargic and not awake enough to take oral lactulose continue lactulose retention enema until mentation improves.? No electrolyte abnormalities, evidence of infection, GI bleed, kidney injury as precipitating cause. Liver disease. according to [facility] [place] records patient had liver biopsy in 10/30 which showed autoimmune hepatitis ? there is also a question of acute liver failure secondary to ?COVID booster shot.? GI consult Thrombocytopenia due to liver disease Coagulopathy INR 1.3 due to liver disease Lactic acidosis due to liver disease and not to be sepsis Hyperglycemia ss A1C 4.9 DVT prophylaxis: Defer Lovenox in the setting of thrombocytopenia Full code Attending Dr. Aguilar NPO until mentation improves continued hospital stay for management of acute hepatic encephalopathy and monitoring of mentation Time Spent With Patient Time: Total time managing care of this patient today ____ minutes.
--- NOTE | 2022-04-01 10:17 | PHA.MEDREC ---
Pharmacy Consult ? Medication Reconciliation Pharmacy has completed the medication reconciliation. Patient is altered, therefore could not confirm medications. Contacted patient pharmacy Rick in [facility] to confirm medications. Patient picked up medicaiton 03/16/22. Patient had a prescripition for KCl 10 mEq daily x 7 days that was never picked up. Merlyn Broussard, PharmD
--- NOTE | 2022-04-01 10:34 | P.CNGI_ITS ---
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 In the ED, patient was noted to be very lethargic and was unable to answer simple questions or follow simple commands.? History was obtained by chart review.? 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 The ED charge nurse did contact [place] and spoke to a co-worker (a friend of the patient).? The patient apparently has liver disease and is supposed to be taking lactulose but stop this medication since it was causing diarrhea and the patient needed to work.? The friend also reported that the pat ient may have had some type of liver surgery and that the cause of the patient's liver failure was secondary to a COVID-19 booster shot.? We attempted to call the next of kin number and this was a fax machine.? The [place] police were contacted and they went to the patient's home and there was no response when the police knocked on the door 04/01/22 Pt awake, answers appropriately to questions and remains confused - knows she is in the hospital and thinks she is a CD. Does not remember why she was brought to the hospital. Reports having a TIPS procedure 1st week of February, for refractory ascites requiring frequent large volume paracentesis. Pt is unsure if she is taking Pred/azathioprine or 6 MP for AIH) or if she is on the Liver Transplant list. Pt is and has 3 children and lives at home with her . Patient was admitted and treated with lactulose enemas. Her mental status has improved this morning and she appears more awake though still confused. IMAGING STUDIES: 04/01/2022 ABDOMINAL ULTRASOUND SHOWED: FINDINGS: LIVER: There is coarsened echotexture present consistent with diffuse hepatocellular disease. The liver appears small in size. There appears to be a TIPS present with hepatopedal flow but increased velocity over 100 cm/s is persistence with some degree of stenosis. No focal hepatic lesion. There is no intrahepatic biliary duct dilatation seen. GALLBLADDER: Not visualized COMMON BILE DUCT: Normal in caliber measuring 0.6 cm in diameter. SPLEEN: Normal. The spleen measures 10.2 cm in maximum dimension. FREE FLUID: Ascites present. IMPRESSION: Hepatocellular disease. TIPS in place with hepatopedal flow present. Findings suggestive of TIPS stenosis. ?Ascites. PAST GI HISTORY BY REVIEW OF MEDICAL RECORDS: [place] [facility] [place]: July 2021 pt presented with cirrhosis and ascites. Etiology of cirrhosis was felt to be ZHENG (obesity and type 2 DM) labs showed positive GRACIA, ASMA and total IgG 10/2021 Liver bx was inconclusive and AIH was not ruled out. 10/2021 She had an EGD with band ligation of esophageal varices, FU EGD in 01/2022 showed varices were eradicated. 01/09/22 - Liver Transplant committee decided to defer her liver Tx listing since she needed to complete dobutamine stress echo, Mammogram, social work evaluation and FU with hepatology. She was started on diuretics and required multiple LVPs every other week [place] [facility] [place] for TIPS placement for refractory ascites (no hx of SBP) and gastric varices. Pt had successful placement of an 8 mm stent with decrease in HVPG from 12 to >5. 10/2021 Patient had liver biopsy (felt to be inconclusive) at [facility] which showed: Cirrhosis of the liver with mild to moderate activity (Grade 2, Stage 4) A biopsied demonstrate distortion of normal lobular hepatic architecture by dense bands of fibrosis surrounding nodules of regenerating hepatic parenchyma consistent with cirrhosis. The fibrous septae are variably expanded by small mature appearing lymphocytes and plasma cells along with bile ductular proliferation. Mild interface activity is present. There is scattered mild lobular inflammatory activity. No significant steatosis coli stasis or granulomas are not seen. Interlobular bile ducts appear intact without evidence of injury. The iron stain is negative for storage iron. Etiologies include autoimmune hepatitis as well as viral hepatitis. ? there is also a question of acute liver failure secondary to ?COVID booster shot.? Review of Systems Review of Systems: Yes Unobtainable due to mental status Neurologic: Reports confusion (answers apprpriately to questions) Psychiatric: Psychiatric: Reports confusion (answers apprpriately to questions) [facility] Past Medical History Medical History Liver disease Surgical History Surgical History (Updated 04/10/22 @ 00:01 by Background Hallie) S/P TIPS (transjugular intrahepatic portosystemic shunt) Social History Social History Household Members: Unknown / Unable to assess Housing: [facility] Patient Tobacco Use Status: Tobacco use Unknown service: No Current occupational status: employed Meds Allergies Allergy/AdvReac Type Severity Reaction Status Date / Time Unable to Assess Allergy Unverified 04/01/22 01:25 Active Medications: Current Medications Dextrose (Dextrose 50 % 25 Gm/50 Ml Syringe) 25 gm IVPUSH Q15M PRN; Protocol PRN Reason: per Hypoglycemia Standing Ord. Glucose (Glucose Gel 15 Gm Gel..Gram.) 15 gm PO Q15M PRN; Protocol PRN Reason: per Hypoglycemia Standing Ord. Insulin Human Lispro (Insulin Lispro 100 Unit/Ml 3 Ml Vial) 0 unit SUBCUT Q6H LOLA; Protocol Last Admin: 04/01/22 07:48 Dose: Not Given Lactulose (Lactulose 320 Gm/480 Ml Solution) 200 gm WI Q6H LOLA Melatonin (Melatonin 3 Mg Tablet) 6 mg PO BEDTIME PRN PRN Reason: Insomnia Ondansetron HCl (Ondansetron Hcl 4 Mg/2 Ml Vial) 4 mg IVPUSH Q8H PRN PRN Reason: Nausea and Vomiting Pharmacy Consult (Consult Rx Perform Med Rec) 1 each MISCELLANE ONCE PRN PRN Reason: Consult order Sodium Chloride (0.9 % Sodium Chloride Flush 3 Ml Syringe) 3 ml IVFLUSH QSHIFT [facility] Last Admin: 04/01/22 07:36 Dose: 3 ml Home Medications Medication Instructions Recorded Confirmed Last Taken Type furosemide 20 mg tablet 40 mg PO DAILY 04/01/22 04/01/22 Unknown History lactulose 10 gram/15 mL (15 mL) 20 g PO TID 04/01/22 04/01/22 Unknown History oral solution spironolactone 50 mg tablet 50 mg PO DAILY 04/01/22 04/01/22 Unknown History Physical Exam Vital Signs: Vital Signs: Last Vital Signs Temp 96.8 F 04/01/22 08:00 Pulse 70 04/01/22 08:00 Resp 20 04/01/22 08:00 BP 143/73 H 04/01/22 08:00 Pulse Ox 99 04/01/22 08:00 O2 Del Method 04/01/22 08:00 BMI result Body Mass Index 31.5 Const: General: no acute distress and confusion (answers apprpriately to questions) Nutritional Appearance: obese and other O rientation/consciousness: confusion (answers apprpriately to questions) L imitations: altered mental status HEENT: Head: Yes normal to inspection Ears: hearing grossly normal bilate rally Eyes: Sclerae: sclerae normal Pupils: Equal, round and reactive pupils present Neck: Neck: Yes normal visual inspection Chest: Chest palpation & inspection: normal inspection of the chest Resp: Effort & Inspection: normal respiratory effort Auscultation: clear to auscultation bilaterally Cardio: Palpation: normal PMI Rate: regular rate Rhythm: regular rhythm Heart sounds: S1 normal heart sound present, S2 normal heart sound present and no murmurs GI: Inspection: Yes distended Palpation (GI): Soft to palpation, nontender, No hepatosplenomegaly present and Ascites present Auscultation: normal bowel sounds Rectal Exam - Female: deferred Skin: General skin exam: no rashes or lesions noted Neuro: General: moves all extremities and confusion (answers apprpriately to questions) Cranial nerves: Yes Equal, round and reactive pupils present Extrem: General: Yes pedal edema (2+ pitting edema bilaterally, ) and Yes other (Flapping tremors) Psych: Appearance: grossly normal Mental Status: mental status grossly normal Results Labs 04/01/22 01:45 04/01/22 06:47 Labs: Short CBC 04/01/22 Range/Units 01:45 WBC 4.1 L (4.8-10.8) X10*3/uL Hgb 11.2 L (12.0-16.0) g/dl Hct 34.9 L (37.0-47.0) % Plt Count 96 L (160-400) X10*3/uL BMP 04/01/22 04/01/22 01:47 06:47 Sodium 144 144 Potassium 3.6 4.0 Chloride 112 H 114 H Carbon Dioxide 23 22 BUN 10 9 Creatinine 0.68 0.58 Calcium 8.2 L 8.1 L Liver Function 04/01/22 04/01/22 Range/Units 01:47 06:47 Total Bilirubin 1.3 H 1.4 H (0.0-1.0) mg/dL AST 72 H 71 H (5-31) U/L ALT 31 28 (0-31) U/L Alkaline Phosphatase 132 H 130 H (39-117) U/L Albumin 2.8 L 2.8 L (3.5-5.0) g/dL Urine 04/01/22 Range/Units 04:43 Urine Color Yellow Urine Appearance Clear Urine pH 7.0 (5.0-9.0) Ur Specific [place] 1.010 (1.005-1.025) Urine Protein Negative (Neg-Trace) mg/dL Urine Glucose (UA) 500 H (Negative) mg/dL Assessment and Plan (1) Hepatic encephalopathy: Status: Resolved (2) S/P TIPS (transjugular intrahepatic portosystemic shunt): Status: Inactive (3) Cirrhosis of liver with ascites: Status: Inactive Plan 61 YF with 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 Pt appears more awake today (still confused) and answers appropriately to questions 04/01/22 ABd US showed cirrhosis with ascites. TIPS in place with hepatopedal flow present and findings suggestive of TIPS stenosis. RECOMMENDATIONS: 1. Continue Lactulose PO and titrate to 2-3 soft BMs a day. 2. Once mental status is back to baseline, pt needs to FU [place] [facility] [place] for FU and management of TIPS stenosis 3. Medical records [place] [facility] and [place] have been requested. Pt reports she is scheduled for a FU appt [place] [facility] [place]. Pt is also scheduled to see SARAHY Mobley ([phone]) on 04/13/22 Time Spent With Patient Time: Total time managing care of this patient today ____ minutes. Procedures Date of Service Date of Service: 04/01/22
[2022-04-01 11:07] LABS: Ammonia 95 umol/L (13-55)
[2022-04-01] MEDS: Lactulose 20 GM/30 ML SOLUTION 30 GM PO ×2 (11:37→20:05)
[2022-04-01 13:41] LABS: Glucose, Whole Blood 81 mg/dL (60-115)
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
[2022-04-01 19:17] LABS: Glucose, Whole Blood 145 mg/dL (60-115)
[2022-04-02 00:58] LABS: Glucose, Whole Blood 110 mg/dL (60-115)
[2022-04-02 03:34] VITALS: BP 145/66; PULSE 75; RESP 20; TEMP 36.4; O2SAT 100
[2022-04-02 05:35] LABS: Glucose, Whole Blood 86 mg/dL (60-115)
[2022-04-02 06:58] LABS: MANUAL DIFF FLAG NO
[2022-04-02 07:20] LABS: Glucose, Whole Blood 72 mg/dL (60-115)
[2022-04-02 07:21] LABS: Basophils Absolute Auto 0.1 X10*3/uL (0.0-0.2); Eosinophils Absolute Auto 0.2 X10*3/uL (0.0-0.4)
[2022-04-02 07:22] LABS: Anion Gap 11 (12-20); Blood Urea Nitrogen 8 mg/dL (9-16); Calcium 8.6 mg/dL (8.4-10.2); Carbon Dioxide 22 mmol/L (22-29); Chloride 111 mmol/L (96-108); Creatinine Clr Calc Pharmacy 86.6; Estimated Glomerular Filt Rate > 60; Glucose Random 82 mg/dL (60-115); Potassium 3.6 mmol/L (3.3-5.1); Sodium 140 mmol/L (135-145)
[2022-04-02 07:24] LABS: Basophils Percent Auto 1.5 % (0-2); Eosinophils Percent Auto 3.7 % (0-4); Hematocrit 36.4 % (37.0-47.0); Hemoglobin 11.6 g/dl (12.0-16.0); Imm Gran Abs Auto 0.02 X10*3/uL (0.00-0.03); Imm Gran Pct Auto 0.4 % (0.0-0.4); Lymphocytes Absolute Auto 1.1 X10*3/uL (1.2-4.9); Lymphocytes Percent Auto 19.5 % (20-40); Mean Corpuscular HGB Conc 31.9 g/dl (31.0-35.0); Mean Corpuscular Hemoglobin 26.9 pg (27.0-33.0); Mean Corpuscular Volume 84.5 fL (80.0-98.0); Mean Platelet Volume 9.6 fL (9.4-12.3); Monocytes Absolute Auto 0.6 X10*3/uL (0.1-1.2); Monocytes Percent Auto 11.1 % (2-11); Neutrophils Absolute Auto 3.4 x10*3/uL (2.0-8.3); Neutrophils Percent Auto 63.8 % (45-73); Red Blood Count 4.31 X10*6/uL (4.20-5.50); Red Cell Distribution Width 18.3 % (11.0-16.0)
[2022-04-02 07:30] LABS: Alanine Aminotransferase 30 U/L (0-31); Albumin Level 2.8 g/dL (3.5-5.0); Alkaline Phosphatase 145 U/L (39-117); Aspartate Amino Transferase 81 U/L (5-31); Bilirubin Direct 0.6 mg/dL (0.0-0.5); Bilirubin Total 1.6 mg/dL (0.0-1.0); Total Protein 6.6 g/dL (6.5-8.0)
[2022-04-02 07:35] LABS: Platelet Count 127 X10*3/uL (160-400); White Blood Count 5.4 X10*3/uL (4.8-10.8)
[2022-04-02 08:00] VITALS: BP 149/69; PULSE 77; RESP 20; TEMP 36.5; O2SAT 98
[2022-04-02] MEDS: Lactulose 20 GM/30 ML SOLUTION 30 GM PO (08:42)
[2022-04-02] MEDS: 0.9 % Sodium Chloride Flush 3 ML SYRINGE IVFLUSH (09:14)
[2022-04-02 10:25] LABS: Ammonia 79 umol/L (13-55)
--- NOTE | 2022-04-02 11:39 | PM.DS ---
DS: Providers Provider Date of Service: 04/02/22 Date of admission: 04/01/22 06:24 Primary care physician: Unknown Physician Consults: 04/01/22 10:01 Consult to Gastroenterology Routine Consulting Provider: Brayden Burger Reason for consultation: hepatic encephalopathy Has provider been notified: No Attending physician on discharge: Enmanuel Robert Discharging clinician: Josie Hanna DS: Diagnosis Discharge Diagnosis (1) Hepatic encephalopathy: Status: Acute (2) S/P TIPS (transjugular intrahepatic portosystemic shunt): Status: Acute (3) Cirrhosis of liver with ascites: Status: Acute DS: Summary Hospital Course Hospital Course: HP as per admitting provider This is a 61-year-old female with pertinent history of liver disease who was sent to the emergency department for evaluation of confusion.? Patient is very lethargic upon my evaluation and does not answer simple questions and does not follow simple commands.? Unable to obtain any history from the patient.? History was obtained by chart review and by ER provider.? 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 The ED charge nurse did contact [facility] and spoke to a co-worker who was a friend of the patient.? The patient apparently has liver disease and is supposed to be taking lactulose but stop this medication since it was causing diarrhea and the patient needed to work.? The friend also reported that the patient may have had some type of liver surgery and that the cause of the patient's liver failure was secondary to a COVID-19 booster shot.? We attempted to call the next of kin number and this was a fax machine.? The [place] police were contacted and they went to the patient's home and there was no response when the police knocked on the door . Acute hepatic encephalopathy Grade II/III secondary to noncompliance with lactulose. Patient only reports 1 day of missing her medications.? Initially patient was treated with retention enemas however mental status improved significantly and was able to transition to oral lactulose. Encephalopathy has completely resolved and patient is ready for discharge. Having regular bowel movements at this time. Liver disease. 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 Status post tips procedure at [facility] in February of 2022. Due to abdominal pain patient had abdominal ultrasound which showed the possibility of tips stenosis. The office of her pressure control supervisor at [facility], Dr. Owens was contacted. A copy of the ultrasound report was faxed to his nurse Maeve. She may need appointment prior to April 13 for concern of the tips stenosis. Thrombocytopenia secondary to liver disease Coagulopathy INR 1.3. due to liver disease Lactic acidosis. due to liver disease and not to sepsis Hyperglycemia . Complete home medications. A1c 4.9 Time Spent with Patient Time attestation: Total time managing care of this patient today ____ minutes. Discharge coordination time: Greater than 30 minutes Quality: Safe Use of Opioids Does Pt have an Active Cancer Diagnosis on the Problem List?: No Quality: Stroke Does the patient have a stroke diagnosis?: No Physical Exam Vital Signs: Vital Signs: Last Vital Signs Temp 97.7 F 04/02/22 08:00 Pulse 77 04/02/22 08:00 Resp 20 04/02/22 08:00 BP 149/69 H 04/02/22 08:00 Pulse Ox 98 04/02/22 08:00 O2 Del Method 04/02/22 08:00 BMI result Body Mass Index 31.5 Appearing in no acute distress head is normocephalic atraumatic eyes pupils are PERRLA sclera is anicteric mouth throat mucous membranes are intact and moist neck is supple no lymphadenopathy, no JVD noted lung sounds are clear to auscultation heart regular rate rhythm, clear S1, S2 positive bowel sounds, abdomen is soft, nontender neuro patient is alert x3, no focal deficits DS: Data Data Completed and Pending Labs on day of discharge: Laboratory Results - last 24 hr 04/01/22 04/01/22 04/02/22 13:36 19:08 00:54 WBC RBC Hgb Hct MCV MCH MCHC RDW Plt Count MPV Immature Gran % (Auto) Neut % (Auto) Lymph % (Auto) Anderson % (Auto) Eos % (Auto) Baso % (Auto) Lymph # (Auto) Anderson # (Auto) Eos # (Auto) Baso # (Auto) Abs Immat Gran (auto) Absolute Neuts (auto) Absolute Nucleated RBC Nucleated RBC % (auto) Sodium Potassium Chloride Carbon Dioxide Anion Gap BUN Creatinine Estim Creat Clear Calc Estimated GFR POC Glucose 81 145 H 110 Random Glucose Calcium Total Bilirubin Direct Bilirubin AST ALT Alkaline Phosphatase Ammonia Total Protein Albumin 04/02/22 04/02/22 04/02/22 05:31 06:40 06:40 WBC 5.4 RBC 4.31 Hgb 11.6 L Hct 36.4 L MCV 84.5 MCH 26.9 L MCHC 31.9 RDW 18.3 H Plt Count 127 L D MPV 9.6 Immature Gran % (Auto) 0.4 Neut % (Auto) 63.8 Lymph % (Auto) 19.5 L Anderson % (Auto) 11.1 H Eos % (Auto) 3.7 Baso % (Auto) 1.5 Lymph # (Auto) 1.1 L Anderson # (Auto) 0.6 Eos # (Auto) 0.2 Baso # (Auto) 0.1 Abs Immat Gran (auto) 0.02 Absolute Neuts (auto) 3.4 Absolute Nucleated RBC 0.000 Nucleated RBC % (auto) 0.0 Sodium 140 Potassium 3.6 Chloride 111 H Carbon Dioxide 22 Anion Gap 11 L BUN 8 L Creatinine 0.66 Estim Creat Clear Calc 86.6 Estimated GFR > 60 POC Glucose 86 Random Glucose 82 Calcium 8.6 D Total Bilirubin Direct Bilirubin AST ALT Alkaline Phosphatase Ammonia Total Protein Albumin 04/02/22 04/02/22 04/02/22 06:40 07:13 09:11 WBC RBC Hgb Hct MCV MCH MCHC RDW Plt Count MPV Immature Gran % (Auto) Neut % (Auto) Lymph % (Auto) Anderson % (Auto) Eos % (Auto) Baso % (Auto) Lymph # (Auto) Anderson # (Auto) Eos # (Auto) Baso # (Auto) Abs Immat Gran (auto) Absolute Neuts (auto) Absolute Nucleated RBC Nucleated RBC % (auto) Sodium Potassium Chloride Carbon Dioxide Anion Gap BUN Creatinine Estim Creat Clear Calc Estimated GFR POC Glucose 72 Random Glucose Calcium Total Bilirubin 1.6 H Direct Bilirubin 0.6 H AST 81 H ALT 30 Alkaline Phosphatase 145 H Ammonia 79 H Total Protein 6.6 Albumin 2.8 L Preliminary micro results at discharge 04/01/22 01:53 Blood Culture - Preliminary Blood - Venous No growth after 24 hours. 04/01/22 01:46 Blood Culture - Preliminary Blood - Venous No growth after 24 hours. Discharge Plan Discharge Anticipated Discharge Date/Time: 04/02/22 11:05 Patient Disposition: Home, Self-Care Discharge Diagnosis: Hepatic encephalopathy Discharge Medications: Continued furosemide 20 mg Tablet 40 mg PO DAILY spironolactone 50 mg Tablet 50 mg PO DAILY lactulose 10 gram/15 mL (15 mL) Solution 20 g PO TID Discharge Orders: Discharge Order (Routine); Ordered 04/02/22 Ordered By: Josie Hanna Diet: Advance to usual diet Activity on Discharge: As tolerated Stand Alone Forms: Patient Portal Discharge page Care Plan Goals: Follow-up with [facility] Dr, [facility], Gastroenterology on upcoming appointment in April.Dr. Owens's Office was notified regarding possible tips stenosis, reading faxed to VANDANA Mcfarlane [phone]. They can decide if patient needs to be seen prior. Health Concerns: Hepatic encephalopathy Plan of Treatment: Follow up with [facility] gastro[facility]ology and interventional radiology Take all medications as prescribed Assessment: See discharge summary
== END 2022-04-02 12:10 | disposition home or self-care (01) ==
LOC: HO.ED 05:23 → HO.EDOVER 06:30 → HO.S3 07:13
PROVIDERS: Admitting Provider Student in an Organized Health Care Education/Training Program; Emergency Provider Emergency Medicine Emergency Medical Services; PCP Family Medicine; Visit Provider Nurse Practitioner Acute Care
DX: K76.82 Hepatic encephalopathy (principal); D68.4 Acquired coagulation factor deficiency; E87.20 Acidosis, unspecified; T82.858A Stenosis of other vascular prosthetic devices, implants and grafts, initial encounter; Y82.9 Unspecified medical devices associated with adverse incidents; R73.9 Hyperglycemia, unspecified; K75.4 Autoimmune hepatitis; D69.59 Other secondary thrombocytopenia; Z20.822 Contact with and (suspected) exposure to COVID-19; Z91.14 Patient's other noncompliance with medication regimen; Z79.899 Other long term (current) drug therapy
CPT/HCPCS: 0241U; 36415; 71045; 76700; 80048; 80053; 80076; 80307; 81003; 82077; 82140; 82947; 83036; 83605; 83690; 84443; 84484; 85025; 85610; 85730; 87040; 93005; 96360; 99285; C1758

== ENCOUNTER 2022-06-08 13:23 | Emergency (ER) | payer MEDICAID, SELFPAY ==
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
[2022-06-08 13:32] VITALS: BP 145/70; PULSE 79; RESP 18; TEMP 36.9; O2SAT 98; BMI 30.6
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
[2022-06-08] MEDS: Cyclobenzaprine HCl 10 MG TABLET PO (16:20)
[2022-06-08 16:30] VITALS: BP 151/70; PULSE 62; RESP 18; TEMP 36.4; O2SAT 99
== END 2022-06-08 17:35 | disposition home or self-care (01) ==
PROVIDERS: Emergency Provider Emergency Medicine Emergency Medical Services; PCP Family Medicine
DX: S13.4XXA Sprain of ligaments of cervical spine, initial encounter (principal); V43.52XA Car driver injured in collision with other type car in traffic accident, initial encounter; R51.9 Headache, unspecified; Y93.89 Activity, other specified; Y92.414 Local residential or business street as the place of occurrence of the external cause; Y99.9 Unspecified external cause status
CPT/HCPCS: 70450; 72125; 73030; 99284